=== PATIENT | male | born 1985 | race American Indian/Alaskan Native ===

== ENCOUNTER 2018-12-27 22:23 | Emergency (ER) | payer SELFPAY ==
[2018-12-27 23:18] VITALS: BP 123/57
[2018-12-27] MEDS ORDERED: TYLENOL PO ONE (23:21)
--- NOTE | 2018-12-27 23:50 | XRay Report ---
PROCEDURE: XR CHEST ROUTINE 2V TECHNIQUE: PA and lateral chest radiographs were obtained. HISTORY: chestpain COMPARISONS: None. FINDINGS: Heart: Normal. Mediastinum/Vessels: Normal. Lungs/Pleural space: Normal. Bony thorax: No acute osseous abnormality. IMPRESSION: Normal examination. This document is electronically signed by Mega Claudio MD., December 27 2018 11:49:10 PM ET
[2018-12-28] MEDS ORDERED: TYLENOL #3 PO ONE (03:26)
[2018-12-28] MEDS ORDERED: ZITHROMAX PO ONE (03:26)
[2018-12-28] MEDS ORDERED: PROVENTIL IH ONE (03:26)
[2018-12-28] MEDS ORDERED: DECADRON IM ONE (03:26)
--- NOTE | 2018-12-28 03:34 | Emergency Department Report ---
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 for cough wheezing chest wall pain x 2 weeks pt denies n/v no dizziness no lightheadedness symptoms are exacerbated by environmental exposure symptoms are relieved by rest Onset/Timin -: week(s) Location: head, chest Radiation: non-radiation Severity scale (0 -10): 10 Quality: aching Consistency: constant Improves with: none Worsens with: movement, other (activity ) Associated Symptoms: chest pain, cough, fever/chills Treatments Prior to Arrival: none - Related Data Previous Rx's Medication Instructions Recorded Last Taken Type Pantoprazole [Protonix] 40 mg PO QDAY #30 tablet 05/12/18 Unknown Rx ALBUTEROL Inhaler(NF) [VENTOLIN 2 puff IH Q4H PRN #1 inha 12/28/18 Unknown Rx Inhaler(NF)] Azithromycin [Zithromax Z-CHAPARRO] 250 mg PO DAILY #6 tab 12/28/18 Unknown Rx Ibuprofen 800 mg PO TID PRN #30 tablet 12/28/18 Unknown Rx predniSONE [Deltasone] 40 mg PO DAILY 5 Days #20 tablet 12/28/18 Unknown Rx Allergies Allergy/AdvReac Type Severity Reaction Status Date / Time No Known Allergies Allergy Verified 05/11/18 23:26 ED Review of Systems ROS: Stated complaint: CHEST PAIN Other details as noted in HPI Constitutional: malaise. denies: chills, fever Eyes: denies: eye pain, eye discharge, vision change ENT: throat pain, congestion Respiratory: cough, shortness of breath, wheezing Cardiovascular: chest pain, palpitations. denies: paroxysmal nocturnal dyspnea Endocrine: no symptoms reported Gastrointestinal: denies: abdominal pain, nausea, diarrhea Genitourinary: denies: urgency, dysuria Musculoskeletal: denies: back pain, joint swelling, arthralgia Skin: denies: rash, lesions Neurological: denies: headache, weakness, paresthesias Psychiatric: denies: anxiety, depression Hematological/Lymphatic: denies: easy bleeding, easy bruising ED Past Medical Hx - Past Medical History Previous Medical History?: No - Surgical History Past Surgical History?: No - Social History Smoking Status: Current Every Day Smoker Substance Use Type: None - Medications Home Medications: Home Medications Medication Instructions Recorded Confirmed Last Taken Type Pantoprazole [Protonix] 40 mg PO QDAY #30 tablet 05/12/18 Unknown Rx ALBUTEROL Inhaler(NF) [VENTOLIN 2 puff IH Q4H PRN #1 inha 12/28/18 Unknown Rx Inhaler(NF)] Azithromycin [Zithromax Z-CHAPARRO] 250 mg PO DAILY #6 tab 12/28/18 Unknown Rx Ibuprofen 800 mg PO TID PRN #30 tablet 12/28/18 Unknown Rx predniSONE [Deltasone] 40 mg PO DAILY 5 Days #20 tablet 12/28/18 Unknown Rx ED Physical Exam - General Limitations: No Limitations General appearance: alert, in no apparent distress - Head Head exam: Present: atraumatic, normal inspection - Eye Eye exam: Present: normal appearance, PERRL, EOMI - ENT ENT exam: Present: normal exam - Neck Neck exam: Present: normal inspection - Respiratory Respiratory exam: Present: normal lung sounds bilaterally, wheezes, chest wall tenderness. Absent: respiratory distress, rhonchi - Cardiovascular Cardiovascular Exam: Present: regular rate, normal rhythm. Absent: systolic murmur, diastolic murmur, rubs, gallop - GI/Abdominal GI/Abdominal exam: Present: soft, normal bowel sounds. Absent: distended, tenderness, guarding, rebound, rigid, mass - Rectal Rectal exam: Present: deferred - Extremities Exam Extremities exam: Present: normal inspection, full ROM, tenderness, pedal edema, joint swelling, other - Back Exam Back exam: Present: normal inspection, full ROM. Absent: tenderness, CVA t enderness (R), CVA tenderness (L), muscle spasm, rash noted - Neurological Exam Neurological exam: Present: alert, oriented X3 - Psychiatric Psychiatric exam: Present: normal affect, normal mood - Skin Skin exam: Present: warm, dry, intact, normal color. Absent: rash ED Course Vital Signs 12/27/18 23:14 Temperature 98 F Pulse Rate 96 H Respiratory 18 Rate Blood Pressure 123/57 O2 Sat by Pulse 100 Oximetry ED Medical Decision Making - EKG Data EKG shows normal: sinus rhythm, axis, intervals, QRS complexes, ST-T waves Rate: normal - EKG Data When compared to previous EKG there are: previous EKG unavailable Interpretation: normal EKG (ekg interp by ED attending NSR no ST elevation no ectopy) - Radiology Data Radiology results: report reviewed, image reviewed Ordering Physician: LUIS ORDAZ MD Date of Service: 12/27/18 Procedure(s): XR chest routine 2V Accession Number(s): [id number] cc: LUIS ORDAZ MD Fluoro Time In Minutes: PROCEDURE: XR CHEST ROUTINE 2V TECHNIQUE: PA and lateral chest radiographs were obtained. HISTORY: chestpain COMPARISONS: None. FINDINGS: Heart: Normal. Mediastinum/Vessels: Normal. Lungs/Pleural space: Normal. Bony thorax: No acute osseous abnormality. IMPRESSION: Normal examination. This document is electronically signed by Kathy Claudio MD., December 27 2018 11:49:10 PM ET Transcribed By: [facility] [place] Dictated By: KATHY CLAUDIO Electronically Authenticated By: KATHY CLAUDIO Signed Date/Time: 12/27/182349 DD/ 41 TD/TT: 12/27/182341 - Medical Decision Making This is not cardiac chest pain chest wall pain reproducible or palpitation Chest x-ray normal no infiltrates noted wheezing is resolved after albuterol treatment with steroids plan treat for bronchitis Z-Chaparro albuterol inhaler and prednisone ibuprofen pt will follow up with pcp pt given referral to [facility] pt dc'd to home in stable condition at this time Critical care attestation.: If time is entered above; I have spent that time in minutes in the direct care of this critically ill patient, excluding procedure time. ED Disposition Clinical Impression: Bronchitis, Chest wall pain Disposition: DC-01 TO HOME OR SELFCARE Is pt being admited?: No Does the pt Need Aspirin: No Condition: Stable Instructions: Costochondritis (ED), Chest Pain (ED), Acute Bronchitis (ED) Prescriptions: predniSONE [Deltasone] 40 mg PO DAILY 5 Days #20 tablet Ibuprofen 800 mg PO TID PRN #30 tablet PRN Reason: pain ALBUTEROL Inhaler(NF) [VENTOLIN Inhaler(NF)] 2 puff IH Q4H PRN #1 inha PRN Reason: shortness of breath Azithromycin [Zithromax Z-CHAPARRO] 250 mg PO DAILY #6 tab Referrals: [facility] [Outside] - 3-5 Days Forms: Work/School Release Form(ED) Time of Disposition: 06:29
== END 2018-12-28 06:33 | disposition home or self-care (01) ==
LOC: ED 22:23
DX: J40 Bronchitis, not specified as acute or chronic (principal); F17.200 Nicotine dependence, unspecified, uncomplicated
CPT/HCPCS: 71046; 93005; 93010; 94640; 96372; 99283; J1100